=== PATIENT | female | born 1945 | race Caucasian/White ===

== ENCOUNTER 2023-11-12 09:24 | Day surgery (SDC) | payer OTHER ==
[2023-11-06 10:04] LABS: URINE APPEARANCE Clear; URINE BILIRRUBIN Negative (NEGATIVE); URINE BLOOD Negative; URINE COLOR Yellow; URINE GLUCOSE Negative (NEGATIVE); URINE KETONE Negative (NEGATIVE); URINE LEUKOCYTE Small; URINE NITRATE Negative; URINE PROTEIN Negative (NEGATIVE); URINE UROBILINOGEN 0.2 E.U./dl
[2023-11-06 10:07] LABS: HEMATOCRIT 42.1 % (36.0-45.00); HEMOGLOBIN 14.5 g/dL (12.0-15.00); MEAN CELL VOLUME 98.1 fL (80.00-100.00); MEAN CORPUSCULAR HEMOGLOBIN 33.8 pg (27.00-32.0); MEAN CORPUSCULAR HGB CONC 34.5 g/dl (32.0-36.0); PLATELET COUNT 295 K/uL (150-450); RED CELL DISTRIBUTION WIDTH 12.9 % (11.5-14.5)
[2023-11-06 10:12] LABS: URINE BACTERIA 49.1 uL (0.0-1933); URINE EPITHELIAL CELLS 4.7 uL (0.0-38.8); URINE RBC 9.6 uL (0.0-20.8); URINE WBC 9.2 uL (0.0-23.2)
[2023-11-06 11:12] LABS: INR 0.97; PARTIAL THROMBOPLASTIN TIME 27.6 SECONDS (22.0-34.0); PROTHROMBIN TIME 10.6 SECONDS (9.0-11.5)
[2023-11-06 11:13] LABS: BILIRUBIN TOTAL 0.86 mg/dL (0.3-1.2); CALCIUM 9.4 mg/dL (8.5-10.1); CREATININE SERUM 0.64 mg/dL (0.55-1.02); GFR 89.51; GLOBULINA 3.6 G/DL (2.4-3.5); POTASSIUM 4.42 mEq/L (3.5-5.1); TOTAL PROTEIN 7.6 gm/dL (6.4-8.2)
[~2023-11-12 09:24] MED LIST: AMLODIPINE-OLM1 EAC2 PO; ATORVASTATIN CA10 MG PO; COZAAR25 MG PO
[2023-11-12] MEDS ORDERED: KETO10TA2 PO (12:53)
[2023-11-12] MEDS ORDERED: TRAMADOL HCL50 MG PO (12:53)
[2023-11-12] MEDS ORDERED: TYLENOL ARTHRI650 MG PO (12:53)
[2023-11-12] MEDS ORDERED: MIRALAX17 GM PO (12:53)
[2023-11-12] MEDS ORDERED: BUPIVACAINE HCL/MPF 0.5% 30ML VIAL ONE (13:33)
[2023-11-12] MEDS ORDERED: CEFAZOLIN SODIUM 1,000 MG VIAL ONE (13:33)
[2023-11-12] MEDS ORDERED: BUPIVACAINE HCL 30 ML VIAL IJ ONE (14:00)
[2023-11-12] MEDS ORDERED: CEFAZOLIN SODIUM 1,000 MG VIAL IV ONE (14:00)
[2023-11-12] MEDS ORDERED: KETOROLAC TROMETHAMINE 30 MG VIAL ONE (14:59)
[2023-11-12] MEDS ORDERED: SUGAMMADEX SODIUM 200 MG/2 ML VIAL IV ONE ×2 (15:00→15:15)
[2023-11-12] MEDS ORDERED: KETOROLAC TROMETHAMINE 30 MG VIAL IU ONE (15:00)
== END 2023-11-12 18:05 | disposition home or self-care (01) ==
LOC: CIR.AMB 09:24
PROVIDERS: ATTEND Surgery
DX: K43.6 Other and unspecified ventral hernia with obstruction, without gangrene (principal); Z88.2 Allergy status to sulfonamides; I10 Essential (primary) hypertension
CPT/HCPCS: 49594; C1781